=== PATIENT | male | born 1940 | race Caucasian/White ===

== ENCOUNTER 2018-05-07 12:21 | Emergency (ER) | payer MEDICARE ==
--- NOTE | 2018-05-07 12:27 | ER Report ---
History and Physical Time Seen By MD: 12:27 HPI/ROS CHIEF COMPLAINT: shortness of breath HISTORY OF PRESENT ILLNESS: This is a 77 year old male. He is visiting here from [place]. He has been feeling intermittent shortness of breath. Describes a burning feeling in his lungs followed by his oxygen levels decreasing. He has a finger probe for oxygen saturation. Usually is up in the upper 90s and then will drop down when he feels this way. Feels like he gets worse with exertion. He has no chest pain. He has a history of atrial fibrillation s/p ablation and severed nerves now with a pacemaker/defibrillator. The pacemaker is working well. He has never had a heart attack or heart failure, but has been on Lasix for edema in the past. He is not aware of any kidney problems. He has no lung diseases, and does not use regular oxygen, although he did by some "canned oxygen" to use to help him feel better. He does feel better when he takes a puff of this oxygen. No fevers or chills. He does have a chronic stuffy nose and congestion, likely due to allergies. No abdominal pain or nausea/vomiting. He has been urinating less than normal. Allergies: Coded Allergies: No Known Drug Allergies (Unverified , 05/07/18) Home Meds Active Scripts Potassium Chloride (KLOR-CON M20) 20 Meq Tab.er.prt, 20 MEQ PO QDAY, #30 TAB 0 Refills Prov:LAST WOODARD MD 05/07/18 Furosemide (LASIX) 20 Mg Tablet, 1 TAB PO QDAY, #30 TAB 0 Refills Prov:LAST WOODARD MD 05/07/18 Reported Medications Cyanocobalamin (Vitamin B-12) (Vitamin B12) 2,500 Mcg Tablet, 1 TAB PO QDAY 05/07/18 Albuterol Sulfate 90 Mcg/Act (PROAIR HFA 90 MCG/ACT) 8.5 Gm Hfa.aer.ad, 2 PUFF IH PRN, INHALER 05/07/18 Citalopram Hydrobromide (CITALOPRAM HBR) 20 Mg Tablet, 20 MG PO QDAY, #5 TAB 05/07/18 Aspirin (ASPIRIN) 325 Mg Tablet, 325 MG PO QDAY, TAB 05/07/18 Atorvastatin Calcium (LIPITOR) 20 Mg Tablet, 1 TAB PO QDAY, TAB 05/07/18 Reviewed Nurses Notes: Yes Constitutional Vital Sign - Last 24 Hours 05/07/18 05/07/18 05/07/18 05/07/18 12:21 12:27 12:30 12:36 Temp 97.7 Pulse 85 86 Resp 18 B/P (MAP) 131/80 131/88 (102) 135/74 (94) Pulse Ox 95 95 O2 Delivery Room Air 05/07/18 05/07/18 05/07/18 05/07/18 12:40 12:40 12:51 12:51 Pulse 85 85 85 Resp 14 14 Pulse Ox 96 97 O2 Delivery Room Air 05/07/18 05/07/18 05/07/18 05/07/18 12:51 12:56 13:11 13:16 Pulse 86 85 85 Pulse Ox 97 94 93 95 O2 Delivery Room Air 05/07/18 05/07/18 05/07/18 05/07/18 13:30 13:46 13:51 14:00 Pulse 86 86 B/P (MAP) 124/68 (86) 133/68 (89) Pulse Ox 97 95 05/07/18 05/07/18 14:06 14:18 Pulse 86 B/P (MAP) 127/79 (95) Pulse Ox 95 Physical Exam General Appearance: The patient is alert. No acute distress. Eyes: Pupils are equal, round. No pallor, injection or icterus. ENT: Mucous membranes are moist. Normal oral mucosa. Posterior oropharynx has a little bit of post nasal drainage, clear with cobblestoning. Normal tympanic membranes and canals. Neck: Supple and non tender. No lymphadenopathy. Respiratory: Lungs are clear to auscultation. Cardiovascular: Regular rate and rhythm. No murmurs, gallops or rubs. Normal capillary refill. Trace edema in ankles. Gastrointestinal: Abdomen is soft and non tender. Nondistended. Normal active bowel sounds. Neurological: Alert and oriented x3. No focal neurologic deficits Skin: Warm and dry. Musculoskeletal: Extremities are nontender. Full range of motion. No tenderness in palpation of the cervical, thoracic and lumbar spine. DIFFERENTIAL DIAGNOSIS: After history and physical exam, differential diagnosis was considered for shortness of breath including but not limited to pulmonary infectious process, COPD, asthma, pulmonary embolus and congestive heart failure. Medical Decision Making Data Points Result Diagram: 05/07/18 1231 05/07/18 1231 Laboratory Hematology Test 05/07/18 12:31 Red Blood Count 5.29 M/uL (4.00-5.60) Mean Corpuscular Volume 91.5 fL (80.0-96.0) Mean Corpuscular Hemoglobin 31.3 pg (26.0-33.0) Mean Corpuscular Hemoglobin Concent 34.2 g/dL (32.0-36.0) Red Cell Distribution Width 15.5 % (11.5-14.5) Mean Platelet Volume 9.9 fL (7.2-11.1) Neutrophils (%) (Auto) 52.8 % (39.4-72.5) Lymphocytes (%) (Auto) 38.3 % (17.6-49.6) Monocytes (%) (Auto) 5.9 % (4.1-12.4) Eosinophils (%) (Auto) 2.3 % (0.4-6.7) Basophils (%) (Auto) 0.7 % (0.3-1.4) Nucleated RBC Relative Count (auto) 0.1 /100WBC Neutrophils # (Auto) 2.2 K/uL (2.0-7.4) Lymphocytes # (Auto) 1.6 K/uL (1.3-3.6) Monocytes # (Auto) 0.2 K/uL (0.3-1.0) Eosinophils # (Auto) 0.1 K/uL (0.0-0.5) Basophils # (Auto) 0.0 K/uL (0.0-0.1) Nucleated RBC Absolute Count (auto) 0.00 K/uL D-Dimer Quantitative (PE/DVT) 0.27 ug/ml (0-0.50) Sodium Level 141 mmol/L (137-145) Potassium Level 3.8 mmol/L (3.5-5.0) Chloride Level 107 mmol/L (98-107) Carbon Dioxide Level 25 mmol/L (22-30) Blood Urea Nitrogen 17 mg/dl (9-21) Creatinine 1.20 mg/dl (0.66-1.25) Glomerular Filtration Rate Calc 59.0 Random Glucose 156 mg/dl (75-110) Calcium Level 8.9 mg/dl (8.4-10.2) Total Bilirubin 1.3 mg/dl (0.2-1.3) Aspartate Amino Transf (AST/SGOT) 26 U/L (0-35) Alanine Aminotransferase (ALT/SGPT) 14 U/L (0-56) Alkaline Phosphatase 100 U/L (0-126) Troponin I 0.023 ng/ml Total Protein 6.8 g/dl (6.3-8.2) Albumin 3.6 g/dl (3.5-5.0) Chemistry Test 05/07/18 12:31 White Blood Count 4.1 k/uL (4.5-11.0) Red Blood Count 5.29 M/uL (4.00-5.60) Hemoglobin 16.6 g/dL (14.0-18.0) Hematocrit 48.4 % (42.0-52.0) Mean Corpuscular Volume 91.5 fL (80.0-96.0) Mean Corpuscular Hemoglobin 31.3 pg (26.0-33.0) Mean Corpuscular Hemoglobin Concent 34.2 g/dL (32.0-36.0) Red Cell Distribution Width 15.5 % (11.5-14.5) Platelet Count 122 K/uL (150-450) Mean Platelet Volume 9.9 fL (7.2-11.1) Neutrophils (%) (Auto) 52.8 % (39.4-72.5) Lymphocytes (%) (Auto) 38.3 % (17.6-49.6) Monocytes (%) (Auto) 5.9 % (4.1-12.4) Eosinophils (%) (Auto) 2.3 % (0.4-6.7) Basophils (%) (Auto) 0.7 % (0.3-1.4) Nucleated RBC Relative Count (auto) 0.1 /100WBC Neutrophils # (Auto) 2.2 K/uL (2.0-7.4) Lymphocytes # (Auto) 1.6 K/uL (1.3-3.6) Monocytes # (Auto) 0.2 K/uL (0.3-1.0) Eosinophils # (Auto) 0.1 K/uL (0.0-0.5) Basophils # (Auto) 0.0 K/uL (0.0-0.1) Nucleated RBC Absolute Count (auto) 0.00 K/uL D-Dimer Quantitative (PE/DVT) 0.27 ug/ml (0-0.50) Glomerular Filtration Rate Calc 59.0 Calcium Level 8.9 mg/dl (8.4-10.2) Total Bilirubin 1.3 mg/dl (0.2-1.3) Aspartate Amino Transf (AST/SGOT) 26 U/L (0-35) Alanine Aminotransferase (ALT/SGPT) 14 U/L (0-56) Alkaline Phosphatase 100 U/L (0-126) Troponin I 0.023 ng/ml Total Protein 6.8 g/dl (6.3-8.2) Albumin 3.6 g/dl (3.5-5.0) Coagulation Test 05/07/18 12:31 D-Dimer Quantitative (PE/DVT) 0.27 ug/ml EKG/Imaging EKG Interpretation 12 lead EKG: Rhythm: Electronic ventricular pacemaker Imaging Exam type: CHEST PA AND LAT History: short of breath Comparison: None. Findings: There is hyperinflation of the lung eid with an increased AP diameter the chest. This blunting of both costophrenic angles posteriorly. This may be secondary to pleural thickening versus pleural effusions. There is no evidence of overt pulmonary edema or focal infiltrates. The cardiac silhouette is enlarged. Cardiac pacemaker noted with one atrial and two ventricular leads IMPRESSION: 1. Hyperinflation lung eid Blunting of the costophrenic angles posteriorly consistent with pleural thickening versus pleural effusions Cardiomegaly Report Dictated By: Farrah Medina MD at 05/07/2018 1:47 PM ED Course/Re-evaluation Clinical Indication for ER IV: IV Access ED Course Labs are unremarkable. EKG with pacer working as appropriate. No change with Albuterol treatment with either the feeling or shortness of breath or with his breath sounds. His chest x-ray shows bilateral effusions in the bases. I discussed this with the patient and he was able to add that he had been on Lasix in the past, 4 years ago, for swelling in his legs. He says that he has not been diagnosed with congestive heart failure, but knows what this is. We will start him on 20mg of Lasix once a day along with 20mEq of potassium. He will need to have a follow-up in 2-3 weeks for repeat labs. I asked him to monitor daily weight. His oxygen levels have never gone below 92 her in the ER so will not need supplemental oxygen. Decision to Disposition Date: May 07, 2018 Decision to Disposition Time: 14:26 Depart Departure Latest Vital Signs Vital Signs Date Time Temp Pulse Resp B/P (MAP) Pulse Ox O2 Delivery O2 Flow Rate FiO2 05/07/18 14:18 127/79 (95) 05/07/18 14:06 86 95 05/07/18 12:51 Room Air 05/07/18 12:51 14 05/07/18 12:21 97.7 Impression: Primary Impression: Pleural effusion Condition: Improved Disposition: HOME OR SELF-CARE New Scripts Potassium Chloride (KLOR-CON M20) 20 Meq Tab.er.prt 20 MEQ PO QDAY, #30 TAB 0 Refills Prov: LAST WOODARD MD 05/07/18 Furosemide (LASIX) 20 Mg Tablet 1 TAB PO QDAY, #30 TAB 0 Refills Prov: LAST WOODARD MD 05/07/18 Patient Instructions: Pleural Effusion (ED) Additional Instructions: Start Lasix (furosemide) 20mg once a day. Take potassium (Klor-con) 20mEq once a day with the Lasix. Keep track of your weight daily and record. Repeat labs in 2-3 weeks to check kidney function and potassium. LAST WOODARD MD May 07, 2018 12:27
[2018-05-07] MEDS ORDERED: ATOR20TA22 PO (12:30)
[2018-05-07] MEDS ORDERED: ALBU8.5H IH (12:30)
[2018-05-07] MEDS ORDERED: CYAN25004 PO (12:30)
[2018-05-07] MEDS ORDERED: ASPI-757 PO (12:30)
[2018-05-07] MEDS ORDERED: CITA-145 PO (12:30)
[2018-05-07] MEDS ORDERED: ALBUTEROL 2.5 MG/3 ML NEB NEB ONE (12:45)
[2018-05-07 12:50] LABS: PLATELET COUNT, AUTOMATED 122 K/uL (150-450)
--- NOTE | 2018-05-07 12:54 | EKG ---
FACILITY: [facility] PATIENT NAME: TYLOR ROPER : [id number] MR: [id number] V: [id number] EXAM DATE: ORDERING PHYSICIAN: LAST WOODARD TECHNOLOGIST: NEIDA Ybarra Reason : Blood Pressure : / mmHG Vent. Rate : 086 BPM Atrial Rate : 060 BPM P-R Int : 000 ms QRS Dur : 170 ms QT Int : 480 ms P-R-T Axes : 000 259 067 degrees QTc Int : 574 ms Electronic ventricular pacemaker No previous ECGs available Confirmed by AARTI BUCK ([id number] on 05/07/2018 2:29:55 PM Referred By: Confirmed By:AARTI BUCK
--- NOTE | 2018-05-07 13:53 | RADIOLOGY IMAGING REPORT ---
FACILITY: [facility] - [place] PATIENT NAME: Zehra Downing : 1940 MR: [id number] V: [id number] EXAM DATE: ORDERING PHYSICIAN: LAST WOODARD TECHNOLOGIST: Location: [facility] [place] Patient: Zehra Downing : 1940 Visit/Account:[id number] Date of Sevice: 05/07/2018 Exam type: CHEST PA AND LAT History: short of breath Comparison: None. Findings: There is hyperinflation of the lung eid with an increased AP diameter the chest. This blunting of both costophrenic angles posteriorly. This may be secondary to pleural thickening versus pleural ef fusions. There is no evidence of overt pulmonary edema or focal infiltrates. The cardiac silhouette is enlarged. Cardiac pacemaker noted with one atrial and two ventricular leads IMPRESSION: 1. Hyperinflation lung eid Blunting of the costophrenic angles posteriorly consistent with pleural thickening versus pleural eff usions Cardiomegaly Report Dictated By: Farrah Medina MD at 05/07/2018 1:47 PM Report E-Signed By: Farrah Medina MD at 05/07/2018 1:49 PM WSN:[email or web address]
[2018-05-07 14:18] VITALS: BP 127/79
[2018-05-07] MEDS ORDERED: FURO20TA19 PO (14:28)
[2018-05-07] MEDS ORDERED: POTA20TA85 PO (14:28)
== END 2018-05-07 14:32 | disposition home or self-care (01) ==
LOC: ER 12:28
DX: J90 Pleural effusion, not elsewhere classified (principal)
CPT/HCPCS: 71046; 84484; 85025; 85379; 93005; 94640; 99283; J7613; 82040; 82247; 82310; 82374; 82435; 82565; 82947; 84075; 84132; 84155; 84295; 84450; 84460; 84520